=== PATIENT | female | born 1975 | race Caucasian/White ===

== ENCOUNTER 2022-06-26 09:25 | Inpatient (IN) | payer SELFPAY ==
[2022-06-26 10:22] LABS: Actual Bicarbonate (HCO3v) 21 mEq/L (22-28); Base Excess -7.6 mEq/L (-2 - +2); Calcium, Ionized (venous) 1.15 mmol/L (1.16-1.32); Chloride (VBG) 98 mmol/L (98-106); Hemoglobin (Hb) 18.1 g/dL (11.7-16.0); Potassium (VBG) 4.09 mmol/L (3.70-5.30); Puncture Site Other Site; RapidComm Collect By CBN; Sodium 146.8 mmol/L (133-146); pH (venous) 7.22 (7.32-7.43)
[2022-06-26 10:38] LABS: Hemoglobin 16.8 g/dL (12.0-15.5); MDiff Complete? YES; Mean Corpuscular Hemoglobin 30.1 pg (27.0-33.0); Mean Corpuscular Volume 91.1 fl (81.6-98.3); Mean Platelet Volume 9.8 fl (7.4-10.4); Platelet Count 516 10x3/uL (150-450); RBC Distribution Width 12.6 % (11.5-14.5); Red Blood Cell (RBC) Count 5.59 10x6/uL (3.90-5.03); White Blood Cell (WBC) Count 23.4 10x3/uL (3.5-10.5)
[2022-06-26 10:52] LABS: SARS-CoV-2 NAA Rapid Test Not Detected (NotDetected)
[2022-06-26 11:00] LABS: ALT (SGPT) 42 U/L (8-55); AST (SGOT) 33 U/L (5-34); Acetaminophen Less than 10.0 mcg/mL (10.0-30.0); Albumin 3.9 g/dL (3.5-5.0); Alcohol Less than 10 mg/dL (Less than 10); Alkaline Phosphatase 90 U/L (40-110); Anion Gap 21 mmol/L (10-20); BUN (Urea Nitrogen) 19 mg/dL (7.0-18.7); Bilirubin, Total 0.4 mg/dL (0.2-1.2); Calc. Creatinine Clearance 0 mL/min (70-130); Calcium 9.2 mg/dL (7.8-10.44); Carbon Dioxide 22 mmol/L (22-29); Chloride 103 mmol/L (98-107); Estimated GFR 44; Globulin 2.6 g/dL (2.4-3.5); Glucose 198 mg/dL (70-105); Protein, Total 6.5 g/dL (6.0-8.3); Salicylate Less than 8.0 mg/dL (15.0-30.0); Sodium 142 mmol/L (136-145)
[2022-06-26 11:09] LABS: Bilirubin Neg (Negative); Blood, Urine 10 (Negative); Clarity Cloudy (Clear); Glucose, Urine (Dipstick) Normal (Negative); Ketone, Urine 5 mg/dL (Negative); Leukocyte 500 (Negative); Nitrite Negative (Negative); Protein, Urine (Dipstick) 30 mg/dl (Neg-Trace); Specific Gravity, Urine 1.005 (1.005-1.030); Urobilinogen Normal mg/dL (Less than 2)
[2022-06-26 11:19] LABS: Amphetamine Not Detected (NotDetected); Barbiturates Screen Not Detected (NotDetected); Benzodiazepine Screen Not Detected (NotDetected); Cocaine Metabolite Screen Not Detected (NotDetected); Methadone Not Detected (NotDetected); Methamphetamine Not Detected (NotDetected); Opiate Screen Not Detected (NotDetected); Oxycodone Screen Not Detected (NotDetected); Phencyclidine (PCP) Not Detected (NotDetected); THC/Cannabinoid Screen Detected (NotDetected); Tricyclic Screen Not Detected (NotDetected)
[2022-06-26 11:20] LABS: Bacteria/HPF 2+ HPF (None Seen); Mucous/LPF 1+ LPF (<2+)
[2022-06-26 11:21] LABS: Oval Fat Bodies/HPF Rare HPF (None Seen)
[2022-06-26 11:50] LABS: Band 2 % (5-11); Lymphocytes 8 % (21-51); Monocytes 4 % (0-10); Neutrophil 86 % (42-75)
[2022-06-26 11:52] LABS: Platelet Morphology Comment Appears Increased
[2022-06-26 11:53] LABS: RBC Morphology NORMAL
[2022-06-26] MEDS ORDERED: Iopamidol 370 76% 100 ML VIAL ONE (12:03)
[2022-06-26] MEDS ORDERED: Acetaminophen 325 MG TAB PO PRN (12:58)
[2022-06-26] MEDS ORDERED: Ondansetron PF 4 MG/2 ML Vial IVP PRN (12:58)
[2022-06-26] MEDS ORDERED: Ondansetron PF 4 MG/2 ML Vial ONE (13:04)
[2022-06-26 13:42] LABS: Lactic Acid 1.9 mmol/L (0.5-2.2)
[2022-06-26] MEDS ORDERED: Lorazepam 2 MG/ML VIAL ONE (17:21)
[2022-06-26] MEDS ORDERED: Nicotine 21 MG PATCH ONE (17:22)
[2022-06-26 19:12] VITALS: BMI 21.0
[2022-06-26] MEDS: Nicotine 21 MG PATCH TD SCH (19:48)
[2022-06-26] MEDS ORDERED: Cefepime 2 GM VIAL ONE (20:09)
[2022-06-26] MEDS: Lactated Ringer's 1,000 ML IV SCH ×2 (20:22→20:35)
[2022-06-26] MEDS: cloNIDine 0.1 MG TAB PO SCH (20:22)
[2022-06-26] MEDS: Cefepime 2 GM in Sodium Chloride 0.9% 100 ML IVPB SCH (20:23)
[2022-06-26 21:08] LABS: Hemoglobin A1c 5.6 % (4.0-6.0)
[2022-06-27 05:26] LABS: #Basophils 0.1 10x3/uL (0.0-0.2); #Eosinphils 0.3 10x3/uL (0.0-0.5); #Monocytes 0.7 10x3/uL (0.0-1.1); #Neutrophils 4.4 10x3/uL (1.5-8.4); %Basophils 1.2 % (0.0-2.0); %Eosinophils 3.2 % (0.0-6.0); %Lymphocytes 34.9 % (18.0-47.0); %Monocytes 7.9 % (0.0-10.0); %Neutrophils 52.4 % (40.0-75.0); Anion Gap 12 mmol/L (10-20); BUN (Urea Nitrogen) 13 mg/dL (7.0-18.7); Calc. Creatinine Clearance 77 mL/min (70-130); Calcium 8.7 mg/dL (7.8-10.44); Carbon Dioxide 25 mmol/L (22-29); Chloride 105 mmol/L (98-107); Estimated GFR 100; Glucose 102 mg/dL (70-105); Hemoglobin 14.1 g/dL (12.0-15.5); Mean Corpuscular HGB CONC 33.8 g/dL (32.0-36.0); Mean Corpuscular Hemoglobin 30.1 pg (27.0-33.0); Mean Corpuscular Volume 88.9 fl (81.6-98.3); Mean Platelet Volume 9.5 fl (7.4-10.4); Platelet Count 332 10x3/uL (150-450); Potassium 3.6 mmol/L (3.5-5.1); RBC Distribution Width 12.7 % (11.5-14.5); Red Blood Cell (RBC) Count 4.69 10x6/uL (3.90-5.03); Sodium 138 mmol/L (136-145); White Blood Cell (WBC) Count 8.4 10x3/uL (3.5-10.5)
[2022-06-27] MEDS: Lactated Ringer's 1,000 ML IV SCH (05:30)
[2022-06-27] MEDS: Cefepime 2 GM in Sodium Chloride 0.9% 100 ML IVPB SCH ×2 (10:01→21:06)
[2022-06-27] MEDS: cloNIDine 0.1 MG TAB PO SCH ×2 (10:02→21:06)
[2022-06-27] MEDS ORDERED: Lorazepam 2 MG/ML VIAL SLOW IVP SCH (18:00)
[2022-06-27] MEDS: Nicotine 21 MG PATCH TD SCH (18:41)
[2022-06-27] MEDS ORDERED: Cefepime 2 GM VIAL ONE (21:03)
[2022-06-28 05:13] LABS: #Basophils 0.1 10x3/uL (0.0-0.2); #Eosinphils 0.3 10x3/uL (0.0-0.5); #Monocytes 0.6 10x3/uL (0.0-1.1); #Neutrophils 4.8 10x3/uL (1.5-8.4); %Eosinophils 3.4 % (0.0-6.0); %Lymphocytes 36.5 % (18.0-47.0); %Neutrophils 51.9 % (40.0-75.0); Hemoglobin 13.6 g/dL (12.0-15.5); Mean Corpuscular HGB CONC 32.6 g/dL (32.0-36.0); Mean Corpuscular Hemoglobin 29.3 pg (27.0-33.0); Mean Corpuscular Volume 89.9 fl (81.6-98.3); Mean Platelet Volume 10.1 fl (7.4-10.4); Platelet Count 316 10x3/uL (150-450); RBC Distribution Width 12.7 % (11.5-14.5); Red Blood Cell (RBC) Count 4.64 10x6/uL (3.90-5.03); White Blood Cell (WBC) Count 9.2 10x3/uL (3.5-10.5)
[2022-06-28 05:22] LABS: Anion Gap 19 mmol/L (10-20); BUN (Urea Nitrogen) 13 mg/dL (7.0-18.7); Calc. Creatinine Clearance 74 mL/min (70-130); Calcium 8.8 mg/dL (7.8-10.44); Carbon Dioxide 21 mmol/L (22-29); Chloride 106 mmol/L (98-107); Estimated GFR 95; Glucose 101 mg/dL (70-105); Sodium 141 mmol/L (136-145)
[2022-06-28 05:28] LABS: Potassium 4.6 mmol/L (3.5-5.1)
[2022-06-28 07:51] VITALS: BP 117/78; TEMP 97.8
[2022-06-28] MEDS: Cefepime 2 GM in Sodium Chloride 0.9% 100 ML IVPB SCH (08:05)
[2022-06-28] MEDS: cloNIDine 0.1 MG TAB PO SCH (08:06)
== END 2022-06-28 10:55 | disposition home or self-care (01) | DRG 872 ==
LOC: CSHERS 09:25 → CSHTELE 17:46
PROVIDERS: ADMIT Internal Medicine; ATTEND Physician Assistant Medical
PROC: 3E03329 Introduction of Other Anti-infective into Peripheral Vein, Percutaneous Approach (ICD-10-PCS; principal; 2022-06-26)
PROC: 4A033R1 Measurement of Arterial Saturation, Peripheral, Percutaneous Approach (ICD-10-PCS; 2022-06-26)
DX: A41.9 Sepsis, unspecified organism (principal); N39.0 Urinary tract infection, site not specified; N17.9 Acute kidney failure, unspecified; Z20.822 Contact with and (suspected) exposure to COVID-19; I10 Essential (primary) hypertension; F41.9 Anxiety disorder, unspecified; M79.7 Fibromyalgia; M19.90 Unspecified osteoarthritis, unspecified site; F17.210 Nicotine dependence, cigarettes, uncomplicated; F12.90 Cannabis use, unspecified, uncomplicated; R73.9 Hyperglycemia, unspecified; E86.0 Dehydration; R65.20 Severe sepsis without septic shock; Z90.89 Acquired absence of other organs; Z98.51 Tubal ligation status
CPT/HCPCS: 36415; 71045; 71275; 74177; 76705; 80048; 80053; 80306; 80307; 81003; 81015; 82805; 83036; 83605; 83690; 84484; 85025; 86900; 86901; 87040; 87086; 93005; J0692; J1650; J2060; J2405; J3490; J7120; Q9967; U0002